=== PATIENT | female | born 2000 | race Caucasian/White ===

== ENCOUNTER 2018-03-26 13:57 | Emergency (ER) | payer OTHER ==
[~2018-03-26] VITALS: Ht 175.3 cm; Wt 72.6 kg
--- NOTE | 2018-03-26 17:38 | ED GI/GU/ABDOMINAL COMPLAINT ---
History of Present Illness General Chief Complaint: General Adult Stated Complaint: BLOOD IN STOOL, 8WKS PREG W/ SPOTTING Source: patient Exam Limitations: no limitations Vital Signs & Intake/Output Vital Signs & Intake/Output Vital Signs Date Time Temp Pulse Resp B/P B/P Pulse O2 O2 Flow FiO2 Mean Ox Delivery Rate 03/26 2058 98.4 81 18 103/56 99 Room Air 03/26 1921 98.3 71 20 99/52 99 Room Air 03/26 1428 98.4 80 18 107/71 98 Room Air ED Intake and Output 03/27 0000 03/26 1200 Intake Total Output Total Balance Patient 160 lb Weight Weight Reported by Patient Measurement Method Allergies Coded Allergies: No Known Allergies (03/26/18) Reconcile Medications No Known Home Medications Triage Note: 17 YO FEMALE TO TRIAGE FOR EVAL OF BLOODY STOOL AND VAGINAL SPOTTING. PT STATES SHE IS APPROX 7 WEEKS (OBGYN: DR JON). REPORTS SHE HAD AN US LAST WEEK BUT THE BABY WAS TO SMALL FOR THEM TO SEE THE HEARTBEAT, REPORTS SHE WAS DUE TO HAVE ANOTHER US TODAY AT 1330 BUT WAS UNABLE TO GO. STATES +BLOOD IN DIARRHEA SINCE YESTERDAY, REPORTS BLOOD IS BRIGHT RED. C/O LOWER ABD PAIN. Triage Nurses Notes Reviewed? yes ? Y Is pt currently ? Yes HPI: Patient is a 17-year-old otherwise healthy female at approximately 7 weeks gestational age by dates who presents today with vaginal spotting and abdominal cramping. She had an ultrasound one week ago which was unable to visualize an IUP presumably the cause of the early gestation, however last night she began having suprapubic cramping, right flank pain and spotting. She describes the spotting as "pinkish" and states that she has had the same pad on all day and it has not been filled. She denies any other symptoms at this time. Past History Travel History Traveled to [place] past 21 day No Medical History Any Pertinent Medical History? 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 No Review of Systems Review of Systems Constitutional: Reports: no symptoms. GI: Reports: see HPI, abdominal pain. Genitourinary: Denies: discharge. All Other Systems: Reviewed and Negative (vaginal bleeding) Physical Exam Physical Exam Gastrointestinal: soft Comments: HEENT: Inspection of the head reveals a normocephalic cranium with no signs of trauma. Ophtho: Extraocular muscles are intact and pupils are equal and reactive to light bilaterally with no afferent pupillary defect. The sclera are noninjected , and there is no obvious discharge. Neck: The trachea is midline, there is no obvious asymmetry or mass over the thyroid, and there is no midline cervical spine tenderness Respiratory: The lungs are clear and equal to auscultation bilaterally without wheezes, rales, or rhonchi. The patient exhibits no signs of labored breathing. Cardiac: Regular rhythm and non-tachycardic without appreciable murmurs on auscultation. No obvious JVD. GI: Examination of the abdomen reveals moderate suprapubic tenderness. There is negative Ramires's sign, negative McBurney's point tenderness, negative Jalen sign, negative Law-Bradshaw sign, and no signs of peritonitis whatsoever on percussion or deep palpation. The skin is intact with no sign of trauma or infection. Back: Right-sided CVA region tenderness to percussion : Subjective vaginal spotting Neuro: The patient is oriented to person, place, time, and situation, with no obvious focal motor deficits. There were no sensory deficits, and the patient exhibit purposeful movement of all 4 extremities. Cranial nerves II through XII are intact, and gait is normal. Behavioral: Calm and cooperative Dermatologic: Dermatologic examination reveals no diffuse rashes or exanthems, no petechiae, no ecchymoses, and no other signs of erythema or infection. Core Measures ACS in differential dx? No Sepsis Present: No Sepsis Focused Exam Completed? No Progress Differential Diagnosis: bowel obstruction, ectopic , kidney stone, ovarian torsion, pancreatitis, threatened AB, UTI/pyelo Plan of Care: Orders Procedure Date/time Status CULTURE,URINE 03/26 1716 Active URINALYSIS 03/26 1716 Complete HUMAN BETA HCG TITRE 03/26 1716 Complete CBC WITHOUT DIFFERENTIAL 03/26 1716 Complete BASIC METABOLIC PANEL 03/26 1716 Complete TYPE & SCREEN (NOT X-MATCH) 07/17 1716 Complete Laboratory Tests 03/26/182031: Urine Color YEL, Urine Clarity CLEAR, Urine pH 6.0, Ur Specific Carmine 1.025, Urine Protein NEG, Urine Ketones 40 H, Urine Nitrite NEG, Urine Bilirubin NEG, Urine Urobilinogen 0.2, Ur Leukocyte Esterase NEG, Ur Microscopic SEDIMENT EXAMINED, Urine RBC 5-10 H, Ur Epithelial Cells MOD H, Urine Mucus MANY H, Urine Hemoglobin SMALL H, Urine Glucose NEG 03/26/181725: Anion Gap 15, Estimated GFR > 60, BUN/Creatinine Ratio 20.0, Glucose 85, Calcium 9.5, Beta HCG, Quant 92771.0, CBC w Diff NO MAN DIFF REQ, RBC 4.79, MCV 86.5, MCH 28.8, MCHC 33.3, RDW 14.3, MPV 6.6 L, Gran % 60.3, Lymphocytes % 33.0, Monocytes % 5.8, Eosinophils % 0.5, Basophils % 0.4, Absolute Granulocytes 4.8, Absolute Lymphocytes 2.6, Absolute Monocytes 0.5, Absolute Eosinophils 0, Absolute Basophils 0 Microbiology 03/26 2032 URINE ROUT: Urine Culture - RECD Initial ED EKG: none Comments: Patient in first trimester presented with right-sided flank pain, right lower abdominal pain, and vaginal bleeding. This was concerning for ectopic especially because an ultrasound obtained last week was able to visualize an intrauterine , presumably because of the early gestational age. I obtained an ultrasound which thankfully diagnosed a live IUP. Laboratory studies were unremarkable, the patient had no further active bleeding. She also had a normal urinalysis except for mild hematuria. She stated that she does have chronic ureterolithiasis but no urologist. I gave her working diagnoses of threatened and ureterolithiasis, and referred her to her anode rebuilder and also gave her the number for our on-call urologist for follow-up and further recommendations. She will take acetaminophen for further analgesia, and she understands the need to return to the emergency department for any new or worsening symptoms. Medical screening examination otherwise negative, patient stable at time of discharge. PATIENT: MADIE DUNCAN PRESENT AGE: 17 PATIENT ACCOUNT NO: [id number] : 98 LOCATION: [facility] ORDERING PHYSICIAN: Trupti MATHIAS SERVICE DATE: 03/26/18 EXAM TYPE: US - US TRANSVAG EXAMINATION: ULTRASOUND FIRST TRIMESTER CLINICAL INFORMATION: Vaginal bleeding. Cramping. COMPARISON: None. TECHNIQUE: Transabdominal and transvaginal imaging of the pelvis was performed. Transvaginal imaging was performed for further evaluation of the endometrium and adnexa. Doppler interrogation spectral analysis was performed about each adnexa. FINDINGS: A normal gravid uterus is identified. A single living intrauterine gestation is identified with a crown-rump length of 7 mm corresponding to 6 weeks 4 days. This is discordant from the age by dates of 7 weeks 4 days for an ROSAMARIA by ultrasound of 11/15/2018. A normal heart rate of 125 beats per minute is identified. Both ovaries are of normal size and echogenicity. The right measures 4.1 x 2.5 x 2.8 cm. This measurement includes an approximately 14 mm cyst. The left measures 2.5 x 1.6 x 1.5 cm. Normal arterial and venous flow is present bilaterally. There is no pelvic free fluid. IMPRESSION: Normal single living intrauterine gestation with an ROSAMARIA of 11/15/2018. DICTATED BY: Emmanuel Adam MD DATE/TIME DICTATED:03/26/181921 STOCK ROLLER:LUDMILA DATE/TIME TRANSCRIBED:03/26/181921 CONFIDENTIAL, DO NOT COPY WITHOUT APPROPRIATE AUTHORIZATION. <Electronically signed in Other Vendor System> SIGNED BY: Emmanuel Adam MD 03/26/181927 Departure Departure Time of Disposition: 2115 Disposition: HOME OR SELF CARE Condition: Stable Clinical Impression Primary Impression: Flank pain Referrals: Natalie ANDERSON,Kamaljit Liz Additional Instructions: Your ultrasound showed a healthy , well positioned. However, if your bleeding is vaginal, this could indicate an abnormal . If it is from your urine, it could indicate pain from your chronic kidney stones. Please call the number enclosed here for an appointment with our urology specialists. Use Tylenol for your pain and return to the emergency department for any new or worsening symptoms. Departure Forms: Customer Survey General Discharge Information Prescriptions: Current Visit Scripts No Known Home Medications
[2018-03-26 17:41] LABS: ABSOLUTE BASOPHIL COUNT 0 /CUMM (0.0-0.2); ABSOLUTE EOSINOPHIL COUNT 0 /CUMM (0.0-0.7); ABSOLUTE GRANULOCYTE CT 4.8 /CUMM (1.4-6.5); ABSOLUTE LYMPH COUNT 2.6 /CUMM (1.2-3.4); ABSOLUTE MONOCYTE COUNT 0.5 /CUMM (0.10-0.60); BASOPHIL % 0.4 % (0.0-2.0); EOSINOPHIL % 0.5 % (0-5); GRANULOCYTE % 60.3 % (42.2-75.2); HEMATOCRIT 41.4 % (37-47); MEAN CORPUSCULAR HGB 28.8 PG (27.0-31.0); MEAN CORPUSCULAR HGB CONC 33.3 G/DL (33.0-37.0); MEAN CORPUSCULAR VOLUME 86.5 FL (81.0-99.0); MEAN PLATELET VOLUME 6.6 FL (7.4-10.4); PLATELET COUNT 325 /CUMM (130-400); RBC DISTRIBUTION WIDTH 14.3 % (11.5-14.5); RED BLOOD CELL CT 4.79 /CUMM (4.20-5.40); WHITE BLOOD CELL COUNT 7.9 /CUMM (4.8-10.8)
--- NOTE | 2018-03-26 19:28 | ULTRASOUND REPORT ---
EXAMINATION: ULTRASOUND FIRST TRIMESTER CLINICAL INFORMATION: Vaginal bleeding. Cramping. COMPARISON: None. TECHNIQUE: Transabdominal and transvaginal imaging of the pelvis was performed. Transvaginal imaging was performed for further evaluation of the endometrium and adnexa. Doppler interrogation spectral analysis was performed about each adnexa. FINDINGS: A normal gravid uterus is identified. A single living intrauterine gestation is identified with a crown-rump length of 7 mm corresponding to 6 weeks 4 days. This is discordant from the age by dates of 7 weeks 4 days for an ROSAMARIA by ultrasound of 11/15/2018. A normal heart rate of 125 beats per minute is identified. Both ovaries are of normal size and echogenicity. The right measures 4.1 x 2.5 x 2.8 cm. This measurement includes an approximately 14 mm cyst. The left measures 2.5 x 1.6 x 1.5 cm. Normal arterial and venous flow is present bilaterally. There is no pelvic free fluid. IMPRESSION: Normal single living intrauterine gestation with an ROSAMARIA of 11/15/2018.
[2018-03-26 20:58] VITALS: BP 103/56
[2018-03-28] MEDS ORDERED: KEFLEX500 M1 PO (19:12)
== END 2018-03-26 21:30 ==
LOC: ERH 13:57
PROVIDERS: Physician Assistant
DX: O26.91 Pregnancy related conditions, unspecified, first trimester (principal); R10.31 Right lower quadrant pain
CPT/HCPCS: 76817; 81001; 87086